=== PATIENT | male | born 1955 | race Caucasian/White ===

== ENCOUNTER → 2024-05-12 15:27 | Outpatient (REF) | payer OTHER, SELFPAY | LOC: HWRAD 15:27 | PROVIDERS: ATTENDING PHYSICIAN Internal Medicine | DX: M25.511 Pain in right shoulder (principal) | CPT/HCPCS: 73030 ==

== ENCOUNTER 2024-06-29 06:26 | Day surgery (SDC) | payer OTHER, SELFPAY | END 2024-06-29 13:37 | disposition home or self-care (01) | LOC: GI 06:26 | PROVIDERS: ATTENDING PHYSICIAN Student in an Organized Health Care Education/Training Program | DX: Z12.11 Encounter for screening for malignant neoplasm of colon (principal); K64.0 First degree hemorrhoids; K63.89 Other specified diseases of intestine; D12.8 Benign neoplasm of rectum; D12.2 Benign neoplasm of ascending colon; D12.0 Benign neoplasm of cecum; K63.5 Polyp of colon; Z80.0 Family history of malignant neoplasm of digestive organs | CPT/HCPCS: 45385; 45380; 88305 ==

== ENCOUNTER → 2024-08-06 13:11 | Outpatient (REF) | payer SELFPAY | LOC: HWRAD 13:11 | PROVIDERS: ATTENDING PHYSICIAN Internal Medicine | DX: E78.2 Mixed hyperlipidemia (principal) | CPT/HCPCS: 75571 ==

== ENCOUNTER → 2024-09-08 09:40 | Outpatient (REF) | payer OTHER, SELFPAY ==
--- NOTE | 2024-09-08 11:22 | CARDSERVDEF ---
Echocardiogram with Definity completed after protocol screening completed. Allergies verified.
Patent IV site: _Left wrist 22 G PC inserted by Melissa Szymanski RN____
IV site flushed with 0.9% NaCl pre and post administration.
Diluted bolus method utilized to enhance visualization of ventricular mendoza.
Total volume given: _9___ mL
Patient tolerated all procedures well without complications.
Heplock D/C ed at 1121, site clear, no redness, no edema. Pressure held, no bleeding, 2x2 applied and taped. Pt offers no complaints.
== END ==
LOC: RCS 09:40
PROVIDERS: ATTENDING PHYSICIAN Internal Medicine
DX: R93.1 Abnormal findings on diagnostic imaging of heart and coronary circulation (principal)
CPT/HCPCS: 93017; 93350; Q9957